=== PATIENT | female | born 1985 | race American Indian/Alaskan Native ===

== ENCOUNTER 2017-02-17 06:30 | Emergency (ER) | payer OTHER ==
[2017-02-17 06:31] VITALS: BMI 38.7
[2017-02-17 06:45] VITALS: BP 119/71; PULSE 75; RESP 16; TEMP 97.9; O2SAT 98
--- NOTE | 2017-02-17 08:26 | ED PDOC ---
HPI: Abdomen Time Seen by Provider: 02/17/17 07:02 Chief Complaint (Nursing): Abdominal Pain Chief Complaint (Provider): im and having pain History Per: Patient History/Exam Limitations: no limitations Onset/Duration Of Symptoms: Hrs (2), Sudden Onset Current Symptoms Are (Timing): Still Present Location Of Pain/Discomfort: RLQ Quality Of Discomfort: Sharp Associated Symptoms: denies: Nausea, Vomiting, Diarrhea, Loss Of Appetite Exacerbating Factors: None Alleviating Factors: None Additional Complaint(s): 31yo female (2 abortions) presents c/o right pelvic pain and concern she's . LMP "early january", states went to a clinic yesterday for a termination of , US was performed not demonstrating an IUP thus was told to seek other care or return for re-evaluation. Denies vaginal bleeding. Past Medical History Reviewed: Historical Data, Nursing Documentation, Vital Signs Vital Signs: Last Vital Signs Temp 97.9 F 02/17/17 06:43 Pulse 75 02/17/17 06:43 Resp 16 02/17/17 06:43 BP 119/71 02/17/17 06:43 Pulse Ox 98 02/17/17 08:47 - Medical History PMH: No Chronic Diseases Denies: Chronic Kidney Disease - Surgical History Other surgeries: prior TOP - Family History Family History: States: Unknown Family Hx - Living Arrangements Living Arrangements: With Family - Social History Drugs: Denies - Home Medications Home Medications: Ambulatory Orders Medication Instructions Recorded No Known Home Med 02/17/17 - Allergies Allergies/Adverse Reactions: Allergies Allergy/AdvReac Type Severity Reaction Status Date / Time No Known Allergies Allergy Verified 02/17/17 06:42 Review of Systems Review Of Systems: ROS cannot be obtained secondary to pt's inabilty to answer questions. Constitutional: Negative for: Fever, Chills Cardiovascular: Negative for: Chest Pain, Palpitations Respiratory: Negative for: Cough, Shortness of Breath Gastrointestinal: Positive for: Abdominal Pain. Negative for: Nausea, Vomiting Genitourinary Female: Positive for: Pelvic Pain. Negative for: Frequency, Hematuria, Vaginal Discharge, Vaginal Bleeding Musculoskeletal: Negative for: Neck Pain, Shoulder Pain, Back Pain Skin: Negative for: Rash, Lesions, Jaundice Neurological: Negative for: Weakness, Numbness Physical Exam - Reviewed Nursing Documentation Reviewed: Yes Vital Signs Reviewed: Yes - Physical Exam Appears: Positive for: Well, Non-toxic, No Acute Distress Head Exam: Positive for: ATRAUMATIC, NORMAL INSPECTION, NORMOCEPHALIC Skin: Positive for: Normal Color, Warm, DRY Eye Exam: Positive for: EOMI, Normal appearance, PERRL ENT: Positive for: Normal ENT Inspection Cardiovascular/Chest: Positive for: Regular Rate, Rhythm Respiratory: Positive for: CNT, Normal Breath Sounds Gastrointestinal/Abdominal: Positive for: Normal Exam, Bowel Sounds, Soft Back: Positive for: Normal Inspection Extremity: Positive for: Normal ROM Neurologic/Psych: Positive for: Alert, Oriented - Laboratory Results Result Diagrams: 02/17/17 07:15 02/17/17 08:34 - ECG O2 Sat by Pulse Oximetry: 98 Medical Decision Making Medical Decision Making: workup for newly discovered now w pain and concern for no IUP on eval yesterday, r/o ectopic initiated Preg+ HCG ~520 hgb normal US reveals possible ectopic OBGYN consulted Dr Bauer who recommended methotrexate, Dr Bauer got consent for administration and I administered after dose confirmed via pharmacist. Pt instructed on mandatory followup and indications for return to ER. Dr Bauer instructed patient on potential for treatment failure and possible need for surgery, or maternal harm/ if treatment unsuccessful. Disposition - Clinical Impression Clinical Impression: Ectopic - Patient ED Disposition Is Patient to be Admitted: No Counseled Patient/Family Regarding: Studies Performed, Diagnosis, Need For Followup - Disposition [facility] Disposition: Routine/Home Disposition Time: 12:05 Condition: STABLE Additional Instructions: RETURN TO ER IMMEDIATELY FOR ANY WORSE PAIN, WEAKNESS, SEVERE BLEEDING OR ANY CONCERN. Forms: [employer] (Ivorian)
[2017-02-17 08:38] LABS: BASO % 0.5 % (0.0-2.0); EOS # 0.1 K/uL (0.0-0.7); EOS % 1.2 % (0.0-4.0); HEMATOCRIT 40.3 % (34.0-47.0); LYMPH # 2.9 K/uL (1.0-4.3); LYMPH % 41.4 % (20.0-40.0); MEAN CELL VOLUME 93.4 fl (81.0-99.0); MEAN CORPUSCULAR HEMOGLOBIN 30.5 pg (27.0-31.0); MEAN CORPUSCULAR HGB CONC 32.7 g/dL (33.0-37.0); MEAN PLATELET VOLUME 9.5 fl (7.2-11.7); MONO # 0.6 K/uL (0.0-0.8); MONO % 8.2 % (0.0-10.0); NEUT # 3.5 K/uL (1.8-7.0); NEUT % 48.7 % (50.0-75.0); NRBC % 0.1 % (0.0-0.0); RED CELL DISTRIBUTION WIDTH 13.1 % (11.5-14.5); WHITE BLOOD COUNT 7.1 K/uL (4.8-10.8)
[2017-02-17 08:56] LABS: ALB/GLOB RATIO 1.2 (1.0-2.1); ALKALINE PHOSPHATASE 93 U/L (38-126); ALT/SGPT 20 U/L (9-52); AST/SGOT 19 U/L (14-36); BILIRUBIN,TOTAL 0.7 mg/dl (0.2-1.3); BLOOD UREA NITROGEN 19 mg/dl (7-17); CALCIUM 9.3 mg/dL (8.4-10.2); CARBON DIOXIDE 21 mmol/L (22-30); CHLORIDE 105 mmol/L (98-107); GFR AFRICAN-AMERICAN > 60; GLUCOSE,RANDOM 70 mg/dL (65-105); POTASSIUM 3.6 MMOL/L (3.6-5.0); SODIUM 140 mmol/l (132-148); TOTAL PROTEIN 8.3 G/DL (6.3-8.2)
[2017-02-17] MEDS ORDERED: Sodium Chloride 0.9% 1,000 ML IV STA (09:06)
--- NOTE | 2017-02-17 09:38 | US ---
PROCEDURE: OB Pelvic Ultrasound HISTORY: , attempted TOP yesterday, no IUP seen COMPARISON: None available. FINDINGS: UTERUS: Measures 6.6 x 4.6 x 3.9 cm. No uterine mass. Endometrium measures 8 mm in width. No endometrial fluid. No intrauterine gestational sac identified. CERVIX: Long and closed. No cervical abnormality seen. RIGHT OVARY: Measures 3.0 x 2.4 x 2.6 cm. Normal flow demonstrated. There is a right ovarian corpus luteum measuring roughly 1.5 cm in diameter. There is also a para ovarian rounded thick walled wing like structure with peripheral hypervascularity is suggestive of an ectopic gestation. This is not certain diagnosis. This measures approximately 8 mm in diameter. There is no pole or cardiac activity evident at this time. Normal blood flow is demonstrated within the ovary. LEFT OVARY: Measures 2.9 x 2.4 x 1.3 cm. No mass. Normal flow. FREE FLUID: None. OTHER FINDINGS: None. IMPRESSION: Possible right para ovarian ectopic gestation. 8 mm diameter. Presumed sac diameter 5 mm. Right ovarian corpus luteum noted. No intrauterine gestation. No free fluid. These findings were discussed by telephone with Dr. Madison at 9 a.m. on 02/17/2017.
[2017-02-17] MEDS ORDERED: Methotrexate 50 mg/2 ml Inj IM ONE (10:34)
--- NOTE | 2017-02-17 10:37 | CP.PCM.CON ---
<Danny Bishop F - Last Filed: 02/17/17 16:10> History of Present Illness - History of Present Illness History of Present Illness: [employer]ORY SUPERINTENDENT consult note: 31 y/o presenting with right sided abdominal pain x 1 day. LMP "early january", unsure of exact dates. [facility] , US was performed not demonstrating an IUP hence her visit to the ED at [facility]. Pain is intermittent, sharp, right sided non radiating. Denies dizziness, f/c/n/v/sob/cp/vaginal bleeding. Review of Systems - Constitutional Constitutional: absent: Chills, Fever, Weakness - EENT Eyes: absent: Blurred Vision - Genitourinary Genitourinary: absent: Difficulty Urinating, Dysuria - Reproductive: Female Reproductive:Female: Pelvic Pain Past Patient History - Infectious Disease Hx of Infectious Diseases: None - Past Social History Drugs: Denies - CARDIAC Hx Cardiac Disorders: No - PULMONARY Hx Respiratory Disorders: No - NEUROLOGICAL Hx Neurological Disorder: No - HEENT Hx HEENT Problems: No - RENAL Hx Chronic Kidney Disease: No - ENDOCRINE/METABOLIC Hx Endocrine Disorders: No - HEMATOLOGICAL/ONCOLOGICAL Hx Blood Disorders: No - INTEGUMENTARY Hx Dermatological Problems: No - MUSCULOSKELETAL/RHEUMATOLOGICAL Hx Musculoskeletal Disorders: No - GASTROINTESTINAL Hx Gastrointestinal Disorders: No - GENITOURINARY/GYNECOLOGICAL Hx Genitourinary Disorders: Yes Other/Comment: 2 abortions. 2 miscarriages - PSYCHIATRIC Hx Psychophysiologic Disorder: No Hx Substance Use: No - SURGICAL HISTORY Hx Surgeries: Yes Other/Comment: D&C x2 - ANESTHESIA Hx Anesthesia: Yes Hx Anesthesia Reactions: No Meds Home Medications: Home Medication List Medication Instructions Recorded Confirmed Type Ibuprofen [Motrin Tab] 600 mg PO Q6 PRN #15 tab 02/17/17 Rx Allergies/Adverse Reactions: Allergies Allergy/AdvReac Type Severity Reaction Status Date / Time No Known Allergies Allergy Verified 02/17/17 06:42 - Medications Medications: Current Medications Methotrexate (Methotrexate) 50 mg IM ONCE ONE PRN Reason: Protocol Stop: 02/17/17 10:35 Physical Exam - Constitutional Appears: No Acute Distress - Head Exam Head Exam: ATRAUMATIC, NORMOCEPHALIC - Eye Exam Eye Exam: EOMI Pupil Exam: PERRL - ENT Exam ENT Exam: Mucous Membranes Moist - Respiratory Exam Respiratory Exam: Clear to Auscultation Bilateral - Cardiovascular Exam Cardiovascular Exam: +S1, +S2 - GI/Abdominal Exam GI & Abdominal Exam: Soft. absent: Distended, Firm, Guarding, Rigid - Extremities Exam Extremities exam: Positive for: normal inspection, tenderness. Negative for: pedal edema Additional comments: RLQ tenderness to palpation, no rebound or guarding. - Back Exam Back exam: absent: CVA tenderness (L), CVA tenderness (R) - Neurological Exam Neurological exam: Alert, Oriented x3 - Psychiatric Exam Psychiatric exam: Normal Affect, Normal Mood - Skin Skin Exam: Dry, Normal Color, Warm Results - Vital Signs Recent Vital Signs: Last Vital Signs Temp 97.9 F 02/17/17 06:43 Pulse 75 02/17/17 06:43 Resp 16 02/17/17 06:43 BP 119/71 02/17/17 06:43 Pulse Ox 98 02/17/17 08:47 - Labs Result Diagrams: 02/17/17 07:15 02/17/17 08:34 Labs: Laboratory Results - last 24 hr 02/17/17 02/17/17 02/17/17 07:15 08:34 08:34 WBC 7.1 RBC 4.31 Hgb 13.2 Hct 40.3 MCV 93.4 D MCH 30.5 MCHC 32.7 L RDW 13.1 Plt Count 264 MPV 9.5 Neut % (Auto) 48.7 L Lymph % (Auto) 41.4 H [facility] % (Auto) 8.2 Eos % (Auto) 1.2 Baso % (Auto) 0.5 Neut # 3.5 Lymph # 2.9 [facility] # 0.6 Eos # 0.1 Baso # 0.0 Sodium 140 Potassium 3.6 Chloride 105 Carbon Dioxide 21 L Anion Gap 18 BUN 19 H Creatinine 0.7 Est GFR ( Amer) > 60 Est GFR (Non-Af Amer) > 60 Random Glucose 70 Calcium 9.3 Total Bilirubin 0.7 AST 19 ALT 20 Alkaline Phosphatase 93 Total Protein 8.3 H Albumin 4.6 Globulin 3.8 Albumin/Globulin Ratio 1.2 Beta HCG, Quant 520.55 Assessment & Plan - Assessment and Plan (Free Text) Plan: 31 y/o presenting with right sided abdominal pain 1. Probable Ectopic - vital stable - HCG 520 - labs normal - US reveals possible ectopic on right side, approx 8mm, with presumed sac. - Dr Bauer by bedside discussed treatment options: mtx v. surgery, patient was explained all risks and benefits of both options, discussed potential treatment failure with Methotrexate and need for subsequent treatment, explained need for proper follow up on day 4 and day 7 for serial BHCG. - Patient opted for mtx treatment after our discussion. All patient questions answered, patient verbalizes understanding of plan - Methotrexate 50 mg/m2; MTX 100 mg IM ordered - patient was consented for MTX treatment by bedside. - f/u on day 4 and day 7 to ER for serial BHCG as directed - ER precautions discussed <Ramses Bauer - Last Filed: 02/18/17 01:57> Results - Vital Signs Recent Vital Signs: Last Vital Signs Temp 97.9 F 02/17/17 06:43 Pulse 75 02/17/17 06:43 Resp 16 02/17/17 06:43 BP 119/71 02/17/17 06:43 Pulse Ox 98 02/17/17 12:54 - Labs Result Diagrams: 02/17/17 07:15 02/17/17 08:34 Labs: Laboratory Results - last 24 hr 02/17/17 02/17/17 02/17/17 07:15 08:34 08:34 WBC 7.1 RBC 4.31 Hgb 13.2 Hct 40.3 MCV 93.4 D MCH 30.5 MCHC 32.7 L RDW 13.1 Plt Count 264 MPV 9.5 Neut % (Auto) 48.7 L Lymph % (Auto) 41.4 H [facility] % (Auto) 8.2 Eos % (Auto) 1.2 Baso % (Auto) 0.5 Neut # 3.5 Lymph # 2.9 [facility] # 0.6 Eos # 0.1 Baso # 0.0 Sodium 140 Potassium 3.6 Chloride 105 Carbon Dioxide 21 L Anion Gap 18 BUN 19 H Creatinine 0.7 Est GFR ( Amer) > 60 Est GFR (Non-Af Amer) > 60 Random Glucose 70 Calcium 9.3 Total Bilirubin 0.7 AST 19 ALT 20 Alkaline Phosphatase 93 Total Protein 8.3 H Albumin 4.6 Globulin 3.8 Albumin/Globulin Ratio 1.2 Beta HCG, Quant 520.55 Assessment & Plan - Assessment and Plan (Free Text) Plan: The patient was seen with the resident and I agree with note. I discussed medical management versus surgical management we discussed risks benefits and alternatives to each mode of therapy and after thorough discussion the patient opted for medical management. The patient was instructed on appropriate follow up on day 4 and 7 we discussed methotrexate failure rate the patient was given the opportunity to ask questions QUESTIONS answered patient aware if the patient intensifies she should return to the emergency room patient agrees to plan of care
[2017-02-17] MEDS ORDERED: PED IM ONE ×2 (12:00)
[2017-02-17] MEDS ORDERED: METHOTREXATE IM ONE ×2 (12:00)
== END 2017-02-17 13:30 | disposition home or self-care (01) ==
LOC: H.ER 06:30
DX: O00.90 Unspecified ectopic pregnancy without intrauterine pregnancy (principal)
CPT/HCPCS: 76817; 80053; 84702; 85025; 96360; 96372; 99282; J7040; J9250

== ENCOUNTER 2017-02-19 16:25 | Emergency (ER) | payer OTHER ==
[2017-02-19 16:25] VITALS: BMI 38.7
[2017-02-19 16:40] VITALS: TEMP 98.8; O2SAT 100
--- NOTE | 2017-02-19 17:17 | ED PDOC ---
HPI: Female Pain Time Seen by Provider: 02/19/17 16:42 Chief Complaint (Nursing): Female Genitourinary Chief Complaint (Provider): Follow Up History Per: Patient History/Exam Limitations: no limitations Additional Complaint(s): Myah Holt, a 31 year old female, presents to the ED for a follow up. The patient reports that she was seen here on February 17 and given methotrexate for an ectopic and was told to return to the ED for a repeat beta level. Patient does note minimal vaginal spotting. Denies abdominal pain and nay other medical complaints. Abnormal Vaginal Bleeding: No Past Medical History Reviewed: Historical Data, Nursing Documentation, Vital Signs Vital Signs: Last Vital Signs Temp 98.8 F 02/19/17 16:37 Pulse 75 02/19/17 16:37 Resp 16 02/19/17 16:37 BP 109/58 L 02/19/17 16:37 Pulse Ox 100 02/19/17 16:37 - Medical History PMH: No Chronic Diseases Denies: Chronic Kidney Disease - Surgical History Surgical History: No Surg Hx - Family History Family History: States: Unknown Family Hx - Social History Current smoker - smoking cessation education provided: No Alcohol: None Drugs: Denies - Home Medications Home Medications: Ambulatory Orders Medication Instructions Recorded Ibuprofen [Motrin Tab] 600 mg PO Q6 PRN #15 tab 02/17/17 - Allergies Allergies/Adverse Reactions: Allergies Allergy/AdvReac Type Severity Reaction Status Date / Time No Known Allergies Allergy Verified 02/17/17 06:42 Review of Systems ROS Statement: Except As Marked, All Systems Reviewed And Found Negative Gastrointestinal: Negative for: Abdominal Pain Genitourinary Female: Negative for: Vaginal Discharge (minimal vaginal spotting) Physical Exam - Reviewed Nursing Documentation Reviewed: Yes Vital Signs Reviewed: Yes - Physical Exam Appears: Positive for: Non-toxic, No Acute Distress Head Exam: Positive for: ATRAUMATIC, NORMAL INSPECTION, NORMOCEPHALIC Skin: Positive for: Normal Color, Warm, Dry. Negative for: Rash Eye Exam: Negative for: Nystagmus ENT: Negative for: Nasal Congestion, Pharyngeal Erythema Cardiovascular/Chest: Positive for: Regular Rate, Rhythm, Chest Non Tender. Negative for: Tachycardia Respiratory: Positive for: Normal Breath Sounds. Negative for: Rales, Rhonchi, Wheezing, Respiratory Distress Gastrointestinal/Abdominal: Positive for: Normal Exam, Bowel Sounds, Soft. Negative for: Tenderness, Mass, Guarding, Rebound Neurologic/Psych: Positive for: Alert, Oriented - ECG O2 Sat by Pulse Oximetry: 100 (RA) Pulse Ox Interpretation: Normal - Physician Consult Information Time Consulting Physican Contacted: 18:10 Physician Contacted: Bacilio Lopez Outcome Of Conversation: States repeat beta performed on day 4. Recommends patient return to ED in 2 days for repeat beta. Medical Decision Making Medical Decision Makin Initial Impression: 31 year old female presenting for repeat beta levels Initial Plan: * Beta-HCG, Quantitative * Reevaluation Scribe Attestation Documented by Rosana Ribera acting as a scribe for Susan Barber MD. Provider Attestation All medical record entries made by the Scribe were at my direction and personally dictated by me. I have reviewed the chart and agree that the record accurately reflects my personal performance of the history, physical exam, medical decision making, and the department course for this patient. I have also personally directed, reviewed, and agree with the discharge instructions and disposition. Disposition - Clinical Impression Clinical Impression: Ectopic - Patient ED Disposition Is Patient to be Admitted: No - Disposition Disposition: Routine/Home Disposition Time: 18:12 Condition: STABLE Additional Instructions: RETURN TO ED ON 02/21/17 FOR REPEAT BETA HCG. Instructions: Ectopic (ED) Forms: [employer] (Panamanian)
[2017-02-19 18:28] VITALS: BP 112/65; PULSE 68; RESP 14
== END 2017-02-19 18:20 | disposition home or self-care (01) ==
LOC: H.ER 16:25
DX: O00.90 Unspecified ectopic pregnancy without intrauterine pregnancy (principal)

== ENCOUNTER 2017-02-21 11:44 | Emergency (ER) | payer OTHER ==
[2017-02-21 12:06] VITALS: BMI 33.9
[2017-02-21 12:08] VITALS: BP 108/62; PULSE 80; RESP 18; TEMP 98; O2SAT 99
--- NOTE | 2017-02-21 12:47 | ED PDOC ---
HPI: General Adult Time Seen by Provider: 02/21/17 12:08 Chief Complaint (Nursing): Abnormal Labs Chief Complaint (Provider): Abnormal Labs History Per: Patient History/Exam Limitations: no limitations Current Symptoms Are (Timing): Gone Now Additional Complaint(s): Myah is a 31 y/o female presenting to the ED for repeat beta-HCG level. States on 02/17 she was diagnosed with ectopic and come to ED for right pelvic pain, had outpatient US showing no IUP. Patient was treated with Methotrexate, and returned on 02/19, when she was still having minimal bleeding but did improve. She was instructed to come today for repeat beta. Reports no vaginal bleeding, pain, weakness. All symptoms have resolved. PMD: Unknown Past Medical History Reviewed: Historical Data, Nursing Documentation, Vital Signs Vital Signs: Last Vital Signs Temp 98 F 02/21/17 12:07 Pulse 80 02/21/17 12:07 Resp 18 02/21/17 12:07 BP 108/62 02/21/17 12:07 Pulse Ox 99 02/21/17 12:49 - Medical History PMH: No Chronic Diseases Denies: Chronic Kidney Disease Other PMH: Ectopic - Surgical History Other surgeries: D & C x2 - Family History Family History: States: Unknown Family Hx - Home Medications Home Medications: Ambulatory Orders Medication Instructions Recorded Ibuprofen [Motrin Tab] 600 mg PO Q6 PRN #15 tab 02/17/17 - Allergies Allergies/Adverse Reactions: Allergies Allergy/AdvReac Type Severity Reaction Status Date / Time No Known Allergies Allergy Verified 02/17/17 06:42 Review of Systems ROS Statement: Except As Marked, All Systems Reviewed And Found Negative Constitutional: Negative for: Fever, Chills, Weakness Genitourinary Female: Negative for: Vaginal Bleeding, Pelvic Pain Physical Exam - Reviewed Nursing Documentation Reviewed: Yes Vital Signs Reviewed: Yes - Physical Exam Appears: Positive for: Well, Non-toxic, No Acute Distress Head Exam: Positive for: ATRAUMATIC, NORMAL INSPECTION, NORMOCEPHALIC Skin: Positive for: Normal Color, Warm, Dry Eye Exam: Positive for: EOMI, Normal appearance, PERRL Neck: Positive for: Normal, Painless ROM, Supple Cardiovascular/Chest: Positive for: Regular Rate, Rhythm. Negative for: Murmur Respiratory: Positive for: Normal Breath Sounds. Negative for: Accessory Muscle Use, Respiratory Distress Gastrointestinal/Abdominal: Positive for: Normal Exam, Bowel Sounds (active), Soft. Negative for: Tenderness Back: Positive for: Normal Inspection Extremity: Positive for: Normal ROM. Negative for: Pedal Edema, Deformity Neurologic/Psych: Positive for: Alert, Oriented. Negative for: Motor/Sensory Deficits - ECG O2 Sat by Pulse Oximetry: 99 (RA) Pulse Ox Interpretation: Normal - Progress ED Course And Treament: Labs reviewed with Dr. Lopez, [facility], and states elevation of BHCG level is expected at this day but pt. is to return to ED on day 7 and BHCG level should decrease by 15%. Pt. informed of plan and states she will return to ED on 02/24/2017. Medical Decision Making Medical Decision Making: Time: 12:22 Initial Plan: --Case discussed with Dr. Lopez, who sates patient only requires new beta level. --Repeat beta-HCG quantitative Scribe Attestation: Documented by Juanita Davidson, acting as a scribe for Clyde Vann PA-C Provider Scribe Attestation: All medical record entries made by the Scribe were at my direction and personally dictated by me. I have reviewed the chart and agree that the record accurately reflects my personal performance of the history, physical exam, medical decision making, and the department course for this patient. I have also personally directed, reviewed, and agree with the discharge instructions and disposition. Disposition - Clinical Impression Clinical Impression: Ectopic - Patient ED Disposition Is Patient to be Admitted: No - Disposition Disposition: Routine/Home Disposition Time: 14:23 Condition: STABLE Additional Instructions: RETURN TO ED ON 02/24/2017 FOR REPEAT BHCG LEVEL Instructions: Ectopic (ED) Forms: [employer] (Faroese) Print Language: [place] LUCIAN
== END 2017-02-21 15:00 | disposition home or self-care (01) ==
LOC: H.ER 11:44
DX: O00.90 Unspecified ectopic pregnancy without intrauterine pregnancy (principal)

== ENCOUNTER 2017-03-09 17:05 | Inpatient (IN) | payer OTHER ==
--- NOTE | 2017-03-09 18:45 | ED PDOC ---
HPI: Female Pain Time Seen by Provider: 03/09/17 17:19 Chief Complaint (Nursing): Abdominal Pain Chief Complaint (Provider): Pelvic pain History Per: Patient History/Exam Limitations: no limitations Onset/Duration Of Symptoms: Days (x1) Current Symptoms Are (Timing): Still Present Additional Complaint(s): Myah Holt is a 31 y/o female who was diagnosed with ectopic and received initial methotrexate injection on 02/17/17. Patient did not return to ED for follow up as instructed. Today she began experiencing right-sided pelvic pain, and menses started. Patient with stronger menstrual pains than usual. Reports taking Tylenol and Midol with good relief. PMD: None Past Medical History Reviewed: Historical Data, Nursing Documentation, Vital Signs Vital Signs: Last Vital Signs Temp 98 F 03/09/17 17:11 Pulse 55 L 03/09/17 17:11 Resp 18 03/09/17 17:11 BP 121/58 L 03/09/17 17:11 Pulse Ox 98 03/09/17 17:11 - Medical History PMH: No Chronic Diseases Denies: Chronic Kidney Disease Other PMH: Ectopic - Surgical History Other surgeries: D&C x2 - Family History Family History: States: Unknown Family Hx - Social History Ex-Smoker (has not smoked in the last 12 months): Yes Alcohol: None Drugs: Denies - Home Medications Home Medications: Ambulatory Orders Medication Instructions Recorded Ibuprofen [Motrin Tab] 600 mg PO Q6 PRN #15 tab 02/17/17 - Allergies Allergies/Adverse Reactions: Allergies Allergy/AdvReac Type Severity Reaction Status Date / Time No Known Allergies Allergy Verified 03/09/17 17:11 Review of Systems ROS Statement: Except As Marked, All Systems Reviewed And Found Negative Genitourinary Female: Positive for: Vaginal Bleeding, Pelvic Pain Physical Exam - Reviewed Nursing Documentation Reviewed: Yes Vital Signs Reviewed: Yes - Physical Exam Appears: Positive for: Well, Non-toxic, No Acute Distress Head Exam: Positive for: ATRAUMATIC, NORMAL INSPECTION, NORMOCEPHALIC Skin: Positive for: Normal Color, Warm, Dry Eye Exam: Positive for: EOMI, Normal appearance, PERRL Neck: Positive for: Normal, Painless ROM, Supple Cardiovascular/Chest: Positive for: Regular Rate, Rhythm. Negative for: Murmur Respiratory: Positive for: Normal Breath Sounds. Negative for: Accessory Muscle Use, Respiratory Distress Gastrointestinal/Abdominal: Positive for: Soft, Tenderness (right pelvic tenderness). Negative for: Other (McBurneys point tenderness) Extremity: Positive for: Normal ROM. Negative for: Pedal Edema, Deformity Neurologic/Psych: Positive for: Alert, Oriented - Laboratory Results Result Diagrams: 03/09/17 18:45 03/09/17 18:45 - ECG O2 Sat by Pulse Oximetry: 98 (RA) Pulse Ox Interpretation: Normal Medical Decision Making Medical Decision Making: Time: 18:00 Initial Plan: --US Pelvis/Transvag --Urine test --Urine dipstick --Beta HCG quantitative --CMP --CBC w/ differential --Pending reevaluation POC Urine positive. Time: 19:00 --Patient is signed out to Dr. Unruyl Thorpe, pending ultrasound, labs, and reevaluation. Scribe Attestation: Documented by Juanita Davidson, acting as a scribe for Susan Barber MD Provider Scribe Attestation: All medical record entries made by the Scribe were at my direction and personally dictated by me. I have reviewed the chart and agree that the record accurately reflects my personal performance of the history, physical exam, medical decision making, and the department course for this patient. I have also personally directed, reviewed, and agree with the discharge instructions and disposition. Disposition - Disposition Forms: [employer] (Italian)
[2017-03-09 18:51] LABS: BASO # 0.1 K/uL (0.0-0.2); BASO % 0.9 % (0.0-2.0); EOS # 0.1 K/uL (0.0-0.7); EOS % 1.1 % (0.0-4.0); LYMPH # 1.4 K/uL (1.0-4.3); LYMPH % 18.7 % (20.0-40.0); MEAN CELL VOLUME 93.8 fl (81.0-99.0); MEAN CORPUSCULAR HEMOGLOBIN 30.8 pg (27.0-31.0); MEAN CORPUSCULAR HGB CONC 32.8 g/dL (33.0-37.0); MEAN PLATELET VOLUME 8.4 fl (7.2-11.7); MONO # 0.7 K/uL (0.0-0.8); MONO % 9.4 % (0.0-10.0); NEUT # 5.2 K/uL (1.8-7.0); NEUT % 69.9 % (50.0-75.0); NRBC % 0.1 % (0.0-0.0); RED CELL DISTRIBUTION WIDTH 13.5 % (11.5-14.5); WHITE BLOOD COUNT 7.4 K/uL (4.8-10.8)
[2017-03-09 19:02] LABS: ALB/GLOB RATIO 1.3 (1.0-2.1); ALKALINE PHOSPHATASE 67 U/L (38-126); ALT/SGPT 18 U/L (9-52); AST/SGOT 14 U/L (14-36); BILIRUBIN,TOTAL 0.4 mg/dl (0.2-1.3); BLOOD UREA NITROGEN 10 mg/dl (7-17); CALCIUM 9.5 mg/dL (8.4-10.2); CARBON DIOXIDE 25 mmol/L (22-30); CHLORIDE 107 mmol/L (98-107); GFR AFRICAN-AMERICAN > 60; GLUCOSE,RANDOM 82 mg/dL (65-105); SODIUM 144 mmol/l (132-148); TOTAL PROTEIN 7.1 G/DL (6.3-8.2)
[2017-03-09 19:04] LABS: POTASSIUM 3.5 MMOL/L (3.6-5.0)
--- NOTE | 2017-03-09 19:22 | ED PDOC ---
- Laboratory Results Result Diagrams: 03/09/17 18:45 03/09/17 18:45 - ECG O2 Sat by Pulse Oximetry: 98 (RA) Pulse Ox Interpretation: Normal Medical Decision Making Medical Decision Making: Time: 19:00 --Patient is signed out to me by Dr. Susan Barber, pending ultrasound, labs, and reevaluation. Time: 21:30 --Labs reviewed, beta HCG level is 240.49 --Still awaiting radiology's report for US Transvag/Pelvic TIME: 21:48 US , TRANSVAGINAL: FINDINGS: Gestation: There is a 2.1x 2.1 cm complex right adnexal mass with associated vascularity. Uterus: Uterus measures approximately 5.7 x 3.1 x cm. endometrium measures approximate 4.1 mm in width. Ovaries: Left ovary measures approximately 2.02 x 1.37 x 1.73 cm. There is a 2 x 1 x 2 mm calcification in the left ovary. There are multiple small follicles. There is intraovarian blood flow. Right ovary measures 3.73 x 2.29 x 3.11 cm.There are multiple small follicles. There is intraovarian blood flow. Free fluid: There is free fluid in the cul-de-sac. There is a small amount of fluid in the left adnexa IMPRESSION: Right adnexal mass consistent with ectopic gestation; fluid in the cul-de- sac and left adnexa TIME: 21:51 US , 1ST TRIMESTER: FINDINGS: Uterus: Uterus measures approximately 7 x 3 x 4 cm. endometrium measures approximately 5.1 mm in width. There is no intrauterine gestation. Ovaries: Right ovary is identified. There is a right adnexal mass. Left ovary is not identified. There is no left adnexal mass Free fluid: There is no significant fluid. Bladder: Bladder is partially incompletely distended which limits evaluation. IMPRESSION: No intrauterine gestation; right adnexal mass suspicious for ectopic gestation Time: 23:15 --Dr. Sue consulted patient in ED. He will admit patient for surgical treatment of right ectopic , with failed methotrexate treatment. Scribe Attestation: Documented by Juanita Davidson, acting as a scribe for Unruly Thorpe MD Provider Scribe Attestation: All medical record entries made by the Scribe were at my direction and personally dictated by me. I have reviewed the chart and agree that the record accurately reflects my personal performance of the history, physical exam, medical decision making, and the department course for this patient. I have also personally directed, reviewed, and agree with the discharge instructions and disposition. Disposition Discussed With : Colin Sue - Clinical Impression Clinical Impression: Ectopic - POA Present On Arrival: None - Disposition Disposition: Admitted as In-Patient Disposition Time: 22:30 Condition: FAIR
--- NOTE | 2017-03-09 21:48 | US ---
EXAM: US First Trimester, Transabdominal CLINICAL HISTORY: 31 years old, female; Pain; right pelvic pain; Additional info: Given methotrexate for right adnexal ectopic gestation on 02/17/17 TECHNIQUE: Real-time transabdominal obstetrical ultrasound of the maternal pelvis and a first trimester with image documentation. COMPARISON: Prior images are not available for review. Correlation is made with a report dated FINDINGS: Uterus: Uterus measures approximately 7 x 3 x 4 cm. endometrium measures approximately 5.1 mm in width. There is no intrauterine gestation. Ovaries: Right ovary is identified. There is a right adnexal mass. Left ovary is not identified. There is no left adnexal mass Free fluid: There is no significant fluid. Bladder: Bladder is partially incompletely distended which limits evaluation. IMPRESSION: No intrauterine gestation; right adnexal mass suspicious for ectopic gestation EXAM: US , Transvaginal EXAM DATE/TIME: 03/09/2017 6:01 PM CLINICAL HISTORY: 31 years old, female; Pain; right pelvic pain; Additional info: Given methotrexate for right adnexal ectopic gestation on 02/17/17 TECHNIQUE: Real-time transvaginal obstetrical ultrasound of the maternal pelvis and a first trimester with image documentation. Transvaginal imaging was used for better evaluation of the fetus and adnexa. COMPARISON: Prior images are not available for review. Correlation is made with a report dated old FINDINGS: Gestation: There is a 2.1x 2.1 cm complex right adnexal mass with associated vascularity. Uterus: Uterus measures approximately 5.7 x 3.1 x cm. endometrium measures approximate 4.1 mm in width. Ovaries: Left ovary measures approximately 2.02 x 1.37 x 1.73 cm. There is a 2 x 1 x 2 mm calcification in the left ovary. There are multiple small follicles. There is intraovarian blood flow. Right ovary measures 3.73 x 2.29 x 3.11 cm.There are multiple small follicles. There is intraovarian blood flow. Free fluid: There is free fluid in the cul-de-sac. There is a small amount of fluid in the left adnexa IMPRESSION: Right adnexal mass consistent with ectopic gestation; fluid in the cul-de-sac and left adnexa
--- NOTE | 2017-03-10 00:04 | CP.PCM.HP ---
<Kendal Rajan - Last Filed: 03/10/17 01:31> History of Present Illness - History of Present Illness History of Present Illness: 31 yo F, with no significant past medical history presented to the ED with right sided lower abdominal waxing/waning pain and cramping for 10-12 hours duration. States pain does not radiate, and moderately alleviated by tylenol. She also reports some vaginal bleeding, but states it is not as heavy as her usual menstrual flow. Patient was seen in the ED on 02/17 after having a positive home test and [facility] In [facility] on , ultrasound: possible right para ovarian ectopic gestation 8mm in diameter, bHCG was 520. Pt was consented for, and received 50mg IM x2 methotrexate and was instructed to follow up in 4 (on 02/21) and 7 (on 02/24) days. Pt returned to the ED 2 days later, on 02/19 (bHCG was 974), and was instructed to return on 02/21, and 02/24 as before. Pt returned on 02/21, bHCG was 1069. She did not follow up on 02/24 because she states she "thought she was fine." Had no symptoms or problems in the interim. Past OB Hx: . 1 NVD. 2 D&C. PMHx: none, denies Past Surg Hx: D&C x2 Medications: none Allergies: NKDA Social Hx: denies tobacco use, denies alcohol use. admits to daily marijuana use. ROS: denies chest pain, shortness of breath, nausea, vomiting, GI upset, dizziness, headache. ED course: positive urine bHCG 240 Transvaginal U/s @18:01: 2.1 x 2.1 cm complex right adnexal mass with associated vascularity. Right adnexal mass consistent with ectopic gestation, fluid in cul-de-sac and left adnexa. Transabdominal U/s 21:48: No intrauterine gestation. Right adnexal mass, left ovary not identified. No significant fluid. Present on Admission - Present on Admission Any Indicators Present on Admission: No Review of Systems - Review of Systems All systems: reviewed and no additional remarkable complaints except - Gastrointestinal Gastrointestinal: As Per HPI, Abdominal Pain - Reproductive: Female Reproductive:Female: As Per HPI Additional comments: vaginal bleeding Past Patient History - Infectious Disease Hx of Infectious Diseases: None - Past Medical History & Family History Past Medical History?: No - Past Social History Alcohol: None Drugs: Cannabis - CARDIAC Hx Cardiac Disorders: No - PULMONARY Hx Respiratory Disorders: No - NEUROLOGICAL Hx Neurological Disorder: No - HEENT Hx HEENT Problems: No - RENAL Hx Chronic Kidney Disease: No - ENDOCRINE/METABOLIC Hx Endocrine Disorders: No - HEMATOLOGICAL/ONCOLOGICAL Hx Blood Disorders: No - INTEGUMENTARY Hx Dermatological Problems: No - MUSCULOSKELETAL/RHEUMATOLOGICAL Hx Musculoskeletal Disorders: No - GASTROINTESTINAL Hx Gastrointestinal Disorders: No - GENITOURINARY/GYNECOLOGICAL Hx Genitourinary Disorders: Yes Other/Comment: 2D&C - PSYCHIATRIC Hx Psychophysiologic Disorder: No Hx Substance Use: No - SURGICAL HISTORY Hx Surgeries: Yes Other/Comment: D&C x2 - ANESTHESIA Hx Anesthesia: Yes Hx Anesthesia Reactions: No Meds Allergies/Adverse Reactions: Allergies Allergy/AdvReac Type Severity Reaction Status Date / Time No Known Allergies Allergy Verified 03/10/17 02:42 Physical Exam - Constitutional Appears: Non-toxic, No Acute Distress - Head Exam Head Exam: NORMOCEPHALIC - Eye Exam Eye Exam: EOMI, Normal appearance, PERRL - ENT Exam ENT Exam: Mucous Membranes Moist - Cardiovascular Exam Cardiovascular Exam: REGULAR RHYTHM, +S1, +S2 - GI/Abdominal Exam GI & Abdominal Exam: Normal Bowel Sounds, Soft, Tenderness (very mild) - Exam Speculum exam: Vaginal Bleeding (no tissue in vaginal vault. os closed. performed with pt's ED nurse as [employer] sales representative in the room.) - Extremities Exam Extremities exam: Positive for: normal inspection. Negative for: joint swelling , pedal edema, tenderness - Neurological Exam Neurological exam: Alert, Normal Gait, Oriented x3 - Skin Skin Exam: Dry, Intact, Normal Color, Warm Results - Vital Signs Recent Vital Signs: Last Vital Signs Temp 98.3 F 03/09/17 23:09 Pulse 62 03/09/17 22:54 Resp 17 03/09/17 22:54 BP 111/65 03/09/17 22:54 Pulse Ox 98 03/09/17 23:24 - Labs Result Diagrams: 03/09/17 18:45 03/09/17 18:45 Labs: Laboratory Results - last 24 hr 03/09/17 03/09/1717 18:45 18:45 18:45 WBC 7.4 RBC 3.84 Hgb 11.8 L Hct 36.0 MCV 93.8 MCH 30.8 MCHC 32.8 L RDW 13.5 Plt Count 314 MPV 8.4 Neut % (Auto) 69.9 Lymph % (Auto) 18.7 L Kent % (Auto) 9.4 Eos % (Auto) 1.1 Baso % (Auto) 0.9 Neut # 5.2 Lymph # 1.4 Kent # 0.7 Eos # 0.1 Baso # 0.1 Sodium 144 Potassium 3.5 L Chloride 107 Carbon Dioxide 25 Anion Gap 16 BUN 10 Creatinine 0.8 Est GFR ( Amer) > 60 Est GFR (Non-Af Amer) > 60 Random Glucose 82 Calcium 9.5 Total Bilirubin 0.4 AST 14 D ALT 18 Alkaline Phosphatase 67 Total Protein 7.1 Albumin 4.0 Globulin 3.1 Albumin/Globulin Ratio 1.3 Serum HCG, Qual Positive Beta HCG, Quant 03/09/17 19:20 WBC RBC Hgb Hct MCV MCH MCHC RDW Plt Count MPV Neut % (Auto) Lymph % (Auto) Kent % (Auto) Eos % (Auto) Baso % (Auto) Neut # Lymph # Kent # Eos # Baso # Sodium Potassium Chloride Carbon Dioxide Anion Gap BUN Creatinine Est GFR ( Amer) Est GFR (Non-Af Amer) Random Glucose Calcium Total Bilirubin AST ALT Alkaline Phosphatase Total Protein Albumin Globulin Albumin/Globulin Ratio Serum HCG, Qual Beta HCG, Quant 240.49 Assessment & Plan - Assessment and Plan (Free Text) Assessment: 31 yo F with complaint of R sided lower abdominal/pelvic pain and vaginal bleeding. S/p methorexate 50mg IM x2 on 02/17/17. Possible ectopic vs adnexal mass vs complete spontaneous . No acute abdomen. Non-compliant with follow up after methotrexate. Plan: Observe overnight. Will re-evaluate in am. Possible dilation and curettage, laporoscopy tomorrow. NPO after midnight LR @ 75 mL/hr CBC, bHCG in am. Dr. Sue at bedside in the ED; case discussed with Dr. Sue. <Colin Sue - Last Filed: 03/10/17 07:34> Results - Vital Signs Recent Vital Signs: Last Vital Signs Temp 99.3 F 03/10/17 05:30 Pulse 66 03/10/17 05:30 Resp 18 03/10/17 05:30 BP 104/57 L 03/10/17 05:30 Pulse Ox 100 03/10/17 05:30 - Labs Result Diagrams: 03/10/17 05:40 03/09/17 18:45 Labs: Laboratory Results - last 24 hr 03/09/17 03/09/17 03/09/17 18:45 18:45 18:45 WBC 7.4 RBC 3.84 Hgb 11.8 L Hct 36.0 MCV 93.8 MCH 30.8 MCHC 32.8 L RDW 13.5 Plt Count 314 MPV 8.4 Neut % (Auto) 69.9 Lymph % (Auto) 18.7 L Kent % (Auto) 9.4 Eos % (Auto) 1.1 Baso % (Auto) 0.9 Neut # 5.2 Lymph # 1.4 Kent # 0.7 Eos # 0.1 Baso # 0.1 Sodium 144 Potassium 3.5 L Chloride 107 Carbon Dioxide 25 Anion Gap 16 BUN 10 Creatinine 0.8 Est GFR ( Amer) > 60 Est GFR (Non-Af Amer) > 60 Random Glucose 82 Calcium 9.5 Total Bilirubin 0.4 AST 14 D ALT 18 Alkaline Phosphatase 67 Total Protein 7.1 Albumin 4.0 Globulin 3.1 Albumin/Globulin Ratio 1.3 Serum HCG, Qual Positive Beta HCG, Quant 03/09/17 03/10/17 19:20 05:40 WBC 6.9 RBC 3.60 L Hgb 11.0 L Hct 33.8 L MCV 94.0 MCH 30.7 MCHC 32.7 L RDW 13.3 Plt Count 295 MPV Neut % (Auto) Lymph % (Auto) Kent % (Auto) Eos % (Auto) Baso % (Auto) Neut # Lymph # Kent # Eos # Baso # Sodium Potassium Chloride Carbon Dioxide Anion Gap BUN Creatinine Est GFR ( Amer) Est GFR (Non-Af Amer) Random Glucose Calcium Total Bilirubin AST ALT Alkaline Phosphatase Total Protein Albumin Globulin Albumin/Globulin Ratio Serum HCG, Qual Beta HCG, Quant 240.49 Assessment & Plan - Assessment and Plan (Free Text) Plan: OB Hospitalist note: This pt was seen and examined by me along with PGY1. Agree with above note. YELENA -also, will review sono with radiologist in AM...check CBC - Date & Time Date: 03/10/17 Time: 07:30 (pt seen 23:00)
[2017-03-10] MEDS ORDERED: Lactated Ringer's 1,000 ML IV SCH (00:45)
[2017-03-10] MEDS ORDERED: Lactated Ringer's 500 ML IV SCH (01:30)
[2017-03-10 02:02] VITALS: BMI 30.9
[2017-03-10 05:46] VITALS: RESP 18; O2SAT 100
[2017-03-10 06:28] LABS: HEMATOCRIT 33.8 % (34.0-47.0); MEAN CORPUSCULAR HEMOGLOBIN 30.7 pg (27.0-31.0); MEAN CORPUSCULAR HGB CONC 32.7 g/dL (33.0-37.0); RED CELL DISTRIBUTION WIDTH 13.3 % (11.5-14.5); WHITE BLOOD COUNT 6.9 K/uL (4.8-10.8)
[2017-03-10 11:28] VITALS: BP 105/52; PULSE 72; TEMP 98.2
--- NOTE | 2017-03-10 11:41 | CP.PCM.PN ---
<John Banegas - Last Filed: 03/10/17 11:47> Subjective - Date & Time of Evaluation Date of Evaluation: 03/10/17 Time of Evaluation: 07:00 - Subjective Subjective: Patient was seen and evaluated at the bedside. States that she is no longer having any abdominal pain. Reports continued vaginal bleeding; no clots. Says that she believes this is her menstrual bleed as the timing is appropriate. Has no complaints at the time. Denies n/v, SOB, CP, dysuria, headache, weakness or dizziness. Objective - Vital Signs/Intake and Output Vital Signs (last 24 hours): Temp Pulse Resp BP Pulse Ox 98.2 F 72 18 105/52 L 100 03/10/17 10:00 03/10/17 10:00 03/10/17 10:00 03/10/17 10:00 03/10/17 10:00 - Medications Medications: Current Medications Lactated Ringer's (Lactated Ringer's 500ml) 500 mls @ 75 mls/hr IV .Q6H40M [facility] Last Admin: 03/10/17 02:54 Dose: 75 mls/hr - Labs Labs: 03/10/17 05:40 03/09/17 18:45 - Constitutional Appears: Well (Found sleeping in bed comfortably; NAD) - Head Exam Head Exam: ATRAUMATIC, NORMAL INSPECTION, NORMOCEPHALIC - Eye Exam Eye Exam: EOMI, Normal appearance Pupil Exam: NORMAL ACCOMODATION, PERRL - ENT Exam ENT Exam: Mucous Membranes Moist, Normal Exam - Neck Exam Neck Exam: Normal Inspection. absent: Lymphadenopathy - Respiratory Exam Respiratory Exam: Clear to Ausculation Bilateral, NORMAL BREATHING PATTERN - Cardiovascular Exam Cardiovascular Exam: REGULAR RHYTHM, +S1, +S2. absent: Murmur - GI/Abdominal Exam GI & Abdominal Exam: Soft, Normal Bowel Sounds. absent: Tenderness, Organomegaly Additional comments: No CVA tenderness - Exam External exam: NORMAL EXTERNAL EXAM - Extremities Exam Extremities Exam: Full ROM, Normal Capillary Refill, Normal Inspection. absent : Joint Swelling, Pedal Edema - Neurological Exam Neurological Exam: Alert, Awake, CN II-XII Intact, Normal Gait, Oriented x3 - Psychiatric Exam Psychiatric exam: Normal Affect, Normal Mood - Skin Skin Exam: Dry, Intact, Normal Color, Warm Assessment and Plan - Assessment and Plan (Free Text) Assessment: 31 yo female with no significant PMHx s/p ectopic and medically managed 2 weeks prior presents with abdominal cramping and vaginal bleed. Plan: #Abdominal Pain -Symptom resolution. Physical exam findings unremarkable. VSS. Afebrile -Latest Transabdominal U/S: No intrauterine gestation. Right adnexal mass, left ovary not identified. No significant fluid. #Vaginal Bleeding -Unchanged. BP and HR are within normal limits. -Likely secondary expulsion of products of conception vs menses -BCH trending down -Pending D/C with strict follow up and ER precautions. Appointment has been made and patient has verbalized understanding. <Colin Sue - Last Filed: 03/10/17 15:25> Objective - Vital Signs/Intake and Output Vital Signs (last 24 hours): Temp Pulse Resp BP Pulse Ox 98.2 F 72 18 105/52 L 100 03/10/17 10:00 03/10/17 10:00 03/10/17 10:00 03/10/17 10:00 03/10/17 10:00 - Medications Medications: Current Medications Lactated Ringer's (Lactated Ringer's 500ml) 500 mls @ 75 mls/hr IV .Q6H40M [facility] Last Admin: 03/10/17 02:54 Dose: 75 mls/hr - Labs Labs: 03/10/17 05:40 03/09/17 18:45 Assessment and Plan - Assessment and Plan (Free Text) Plan: LATE ENTRY Pt seen in the morning and again 14:00pm. Case/sonogram reviewed with radiologist. Today she is asymptomatic. Will send her home and follow up in 1w at [facility]. She understands her condition and will come back if she any complaints...agree with PGY1 note (but not menstruating) - probably complete Ab. Bllod type O pos...script given to do BHCG prior to [facility] visit Mar 19
== END 2017-03-10 16:30 | disposition home or self-care (01) | DRG 378 ==
LOC: H.ER 17:05 → H.ERHOLD 22:33 → H.PEDS 03-10 00:09
PROVIDERS: ADMIT Obstetrics & Gynecology; ATTEND Obstetrics & Gynecology
DX: O00.90 Unspecified ectopic pregnancy without intrauterine pregnancy (principal); Z91.19 Patient's noncompliance with other medical treatment and regimen; Z87.891 Personal history of nicotine dependence

== ENCOUNTER 2018-05-09 20:29 | Emergency (ER) | payer SELFPAY ==
[2018-05-09 20:29] VITALS: BMI 30.9
[2018-05-09 20:36] VITALS: BP 121/61; RESP 18; TEMP 98.2
[2018-05-09] MEDS ORDERED: PROPARACAINE/FLUORESCEIN SOD 100 DROP/5 ML BOTTLE OU STA (21:20)
[2018-05-09] MEDS ORDERED: Tdap Vaccine 0.5 ml Vial (10-64 yrs) IM ONE ×2 (21:37→21:59)
[2018-05-09] MEDS ORDERED: Ciprofloxacin 0.3% OPTH SOLN OS STA (21:38)
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
[2018-05-09 22:07] VITALS: PULSE 76; O2SAT 99
== END 2018-05-09 22:13 | disposition home or self-care (01) ==
LOC: H.ER 20:29
DX: S05.92XA Unspecified injury of left eye and orbit, initial encounter (principal); H11.32 Conjunctival hemorrhage, left eye; W22.8XXA Striking against or struck by other objects, initial encounter; Y92.89 Other specified places as the place of occurrence of the external cause

== ENCOUNTER 2018-10-03 20:28 | Inpatient (IN) | payer SELFPAY ==
[2018-10-03 21:34] VITALS: BMI 25.8
[2018-10-03] MEDS ORDERED: Lactated Ringer's 1,000 ML IV ONE (21:38)
[2018-10-03] MEDS ORDERED: Oxytocin 30 UNIT in NS 500 ml 30 UNITS/500 ML BAG IV ONE (22:10)
[2018-10-03] MEDS ORDERED: OXYTOCIN/0.9 % NS 20 UNIT/1,000 ML BAG IV ONE (22:11)
--- NOTE | 2018-10-03 22:27 | OBHP ---
Datetime: 10/03/2018 21:57 IP Admit Plan: Admit to unit; Initiate labor protocol Admit Comment, IP Provider: 32 yo with estemated 42-42.5?wk as per patient possible date of c onseption December 22 2017 present to [facility] due to pelvic pain. Patient did not have any care dur ing her , and she have been smoking marijuana thru out the . Patient report that sh e start having pelvic pain since yesterday around 2:30pm, she is not sure if its contraction or not, but state that pelvic pain is like pressure pushing down. Otherwise she denies any vaginal bleed or w ater gush. Allergy: none MED: none PMH: none PSH none OBGYN: 3 aborition, 3 miscarriage, 1 NVD with hemorhage due to uterine atony EBL 500 controlled wi th Pit, IM hemabate, Cytotec PA, and Uterine massage. Social: denies smoke cig. or drinking but she admit on smoking marijuana thru out her . Assessment and plan 32 yo f with estimated 42-42.5wk? present to [facility] to pelvic pain. Admit to L_D strip reactive vitals WNL Cervix 4, 70, -3 US Vertex Will send for official US to evlauate for placenta presentation, and estimated weight Epidural for pain LR 1L at 999 LR 1L at 125 NPO F/UCBC, type and screen, Hep B, HIV, RPR, Drug screen Normal vaginal delivery protocol PIT after placenta delivery [id number] Case discussed with Dr Thomas OB Hospitalist Addendum: 32 yo at 40-42 weeks w/ no care, reports that she has james d abdominal pain since last night. Pt reports that she may have conceived around 12/22/2017. VE: 09/11 0/-3 at 2127. Official u/s ordered. Placenta is fundal. FHT reactive. (ES) Pelvic Type - PN: Adequate Extremities - PN: Normal Abdomen - PN: Normal Back - PN: Normal Breast - PN: Not Done Lungs - PN: Normal Heart - PN: Normal Thyroid - PN: Normal Neurologic - PN: Normal HEENT - PN: Normal General - PN: Normal Presentation-Admit: Vertex FHR - Baseline A Provider: 130 Membranes, Provider: Bulging Quinn, ACOG Physical Exam: Heart no extra heart sound lung clear in all quadrant Abd non-tender BS+ Cervix 4,70, -3 Gestation - Est Wks by US: 41? Vital Signs Provider: Reviewed; Within Normal Limits IP Chief Complaint: Uterine contractions NICHD Variability Prov Fetus A: Moderate 6-25bpm NICHD Accel Fetus A IP Provider: [id number] NICHD Decel Fetus A IP Provider: None Dilatation, Provider: 4 Effacement, Provider: 70 Station, Provider: -3 Genitourinary Exam: Normal DTRs - PN: Normal Datetime: 10/03/2018 21:42 IP Adm Impression: Term, intrauterine ; Postterm, intrauterine FHR Category Provider Fetus A: Category I
[2018-10-03] MEDS: Lactated Ringer's 1,000 ML IV SCH (23:00)
[2018-10-03 23:27] LABS: BASO # 0.1 K/uL (0.0-0.2); EOS % 0.2 % (0.0-4.0); HEMOGLOBIN 11.8 g/dL (12.0-16.0); LYMPH # 2.3 K/uL (1.0-4.3); LYMPH % 22.3 % (20.0-40.0); MEAN CELL VOLUME 93.2 fl (81.0-99.0); MEAN CORPUSCULAR HEMOGLOBIN 31.2 pg (27.0-31.0); MEAN CORPUSCULAR HGB CONC 33.4 g/dL (33.0-37.0); MEAN PLATELET VOLUME 8.6 fl (7.2-11.7); MONO # 0.5 K/uL (0.0-0.8); NEUT # 7.4 K/uL (1.8-7.0); NEUT % 71.5 % (50.0-75.0); NRBC % 0.1 % (0.0-0.0); RBC 3.8 Mil/uL (3.80-5.20); RED CELL DISTRIBUTION WIDTH 14.3 % (11.5-14.5); WHITE BLOOD COUNT 10.4 K/uL (4.8-10.8)
[2018-10-03 23:47] LABS: BARBITURATES, UR NEGATIVE (NEGATIVE); BENZODIAZEPINES, UR NEGATIVE (NEGATIVE); OPIATES, UR NEGATIVE (NEGATIVE); PHENCYCLIDINE, UR NEGATIVE (NEGATIVE)
[2018-10-04 03:32] VITALS: BP 109/52; PULSE 61; RESP 17; TEMP 99.5
[2018-10-04] MEDS: Lactated Ringer's 1,000 ML IV SCH (06:52)
--- NOTE | 2018-10-04 07:31 | OBDCSUM ---
Datetime: 10/04/2018 07:29 Discharged to, Provider: Home Follow up at, Provider: Hospital Disch Instr Activity: Normal activity; May Shower Disch Instr Diet: Regular Discharge Diagnosis, Provider: Term Delivered Discharge Time: 10/04/2018 07:29 Follow up in weeks, Provider: 1 week Disch Activity Restrictions: No exercising
--- NOTE | 2018-10-04 07:31 | OBPN ---
Datetime: 10/04/2018 07:24 IP Progress Impression Other: VE unchanged IP Procedures: Sterile Vag Exam IP Progress Plan: Discharge Membranes, Provider: Intact Contraction Comments Provider: None FHR - Baseline A Provider: 130's IP Progress Note Comment: 32 yo at 37+ 2 wks based on u/s done last night VE unchanged FHT reactive Pt to be discharged home w/ labor precautions Pt given copy of her u/s Pt told to f/u at hospital in 1 week if she is still given no care NICHD Accel Fetus A IP Provider: [id number] FHR Category Provider Fetus A: Category I NICHD Variability Prov Fetus A: Moderate 6-25bpm Dilatation, Provider: 3-4 Effacement, Provider: 70 Station, Provider: -3 NICHD Decel Fetus A IP Provider: None Datetime: 10/03/2018 21:57 Gestation - Est Wks by US: 41? Presentation-Admit: Vertex Vital Signs Provider: Reviewed; Within Normal Limits
--- NOTE | 2018-10-04 13:15 | US ---
Date of service: 10/03/2018 PROCEDURE: Limited OB ultrasound. HISTORY: for placenta station, estemated weight/week COMPARISON: None TECHNIQUE: Standard protocol for this study/examination. FINDINGS: Cephalic presentation. Fundal/posterior placenta. No evidence of abruption or previa Gestational age derived from LMP Cannot be ascertained based in the absence of a reliable/ known LMP. Gestational age derived from the following biometric parameters thirty-seven weeks 3 days. MEE 10/21/2018. Biparietal diameter 9.24 cm Head circumference 32.68 cm Abdominal circumference 33.75 cm Femur length 7.29 cm Estimated weight 3227 g Calculated cardiac rate 133 beats per min. Closed cervix measuring 4.33 cm Amniotic fluid index 16.67 IMPRESSION: Single live intrauterine gestation. Cephalic presentation. Posterior/fundal placenta. Gestational concordance cannot be ascertained based in the absence of a reliable/ known LMP Concordant findings (preliminary report) provided by [facility].
== END 2018-10-04 07:30 | disposition home or self-care (01) | DRG 832 ==
LOC: H.EROB2 20:28 → H.L&D 21:38
PROVIDERS: ADMIT Obstetrics & Gynecology; ATTEND Obstetrics & Gynecology
PROC: 4A1HXCZ Monitoring of Products of Conception, Cardiac Rate, External Approach (ICD-10-PCS; principal; 2018-10-03)
DX: O33.1 Maternal care for disproportion due to generally contracted pelvis (principal); O99.324 Drug use complicating childbirth; O48.0 Post-term pregnancy; Z3A.40 40 weeks gestation of pregnancy; F12.90 Cannabis use, unspecified, uncomplicated